=== PATIENT | male | born 1985 | race Hispanic/Latino ===

== ENCOUNTER 2017-10-16 11:12 | Emergency (ER) | payer BC, OTHER ==
[2017-10-16 11:35] LABS: Bilirubin Negative (Negative); Blood, Urine Negative (Negative); Clarity CLEAR (Clear); Glucose, Urine (Dipstick) Negative (Negative); Leukocyte Small (Negative); Nitrite Negative (Negative); Protein, Urine (Dipstick) Negative (Neg-Trace); Specific Gravity, Urine 1.025 (1.002-1.036); Urobilinogen 0.2 mg/dL (0.2-1.0)
[2017-10-16 11:38] LABS: Bacteria/HPF None Seen HPF (None Seen); Hyaline Casts/LPF 0-3 HYALINE CAST LPF (0-3 Hyaline); Pathc Cast-AUWi Flag 0.14 (0-2.49); RBC/HPF 0-3 HPF (0-3); Squamous Epithelial None Seen HPF (0-3)
--- NOTE | 2017-10-16 13:06 | ULT ---
TESTICULAR ULTRASOUND: Comparison: None. History: Testicular pain that began two days ago. Technique: Multiplanar grayscale and color doppler images were obtained in a testicular/scrotal ultra sound. Spectral analysis of the doppler waveforms were performed. FINDINGS: There are small echogenic regions in both testicles consistent with testicular microlithiasis. No john picious mass is seen in either testicles. The testicles demonstrate normal symmetric internal flow. No hydrocele is seen. There are two left epididymal cysts measuring up to 3 mm in size. There is prom inent vessels in the scrotal wall consistent with a vericocele, left greater than right. These increa se with valsalva. IMPRESSION: 1. 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 2. Left epididymal cyst. 3. Bilateral vericocele. POS: BRIAN
[2017-10-16] MEDS ORDERED: Azithromycin 500 MG VIAL ONE (13:15)
[2017-10-16] MEDS ORDERED: cefTRIAXone\\ROCEPHIN 250 MG VIAL ONE (13:15)
[2017-10-16] MEDS ORDERED: Azithromycin 250 MG TAB ONE (13:16)
[2017-10-16] MEDS ORDERED: Lidocaine 1% PF 5 ML VIAL ONE (13:17)
[2017-10-18 10:06] LABS: Chlamydia by PCR Not Detected (NotDetected); GC by PCR Not Detected (NotDetected)
== END 2017-10-16 13:39 | disposition home or self-care (01) ==
LOC: ERS 11:12
DX: N39.0 Urinary tract infection, site not specified (principal); N43.3 Hydrocele, unspecified; I10 Essential (primary) hypertension
CPT/HCPCS: 76870; 81003; 81015; 87086; 87491; 87591; 93976; J0456; J0696; J2001

== ENCOUNTER 2020-11-27 16:48 | Emergency (ER) | payer OTHER, SELFPAY | END 2020-11-27 20:46 | disposition home or self-care (01) | LOC: ERS 16:48 | DX: J20.9 Acute bronchitis, unspecified (principal); I10 Essential (primary) hypertension; Z79.899 Other long term (current) drug therapy | CPT/HCPCS: 71045; J7620 ==